=== PATIENT | male | born 2000 | race Caucasian/White ===

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

== ENCOUNTER 2019-04-06 22:00 | Emergency (ER) | payer OTHER, SELFPAY ==
[2019-04-06 22:01] VITALS: BP 119/57; PULSE 86; RESP 18; TEMP 36.6; O2SAT 100; BMI 19.2
--- NOTE | 2019-04-06 22:20 | ED.RN ---
pt had tetanus shot approx 6 months ago
--- NOTE | 2019-04-06 22:25 | ED.DCSUM_ITS ---
- ER Visit Summary Date of Service: 04/06/19 Chief Complaint: Laceration History of Present Illness: The patient is a 18 M with a laceration to his right hand. This happened at work. He hit his hand against a conveyor and pulled it back immediately. He sustained an injury to his dorsal right hand just proximal to the index finger MCP joint. No other associated complaints. Up-to-date with immunizations. Physical Examination: There is a 3 cm curvilinear laceration to the dorsum of the right hand just proximal to the index finger MCP joint. This appears to have been glued. There appears to be good alignment. Skin otherwise is unremarkable and intact. Good strength and sensation. Good range of motion. Test Results: None indicated Emergency Department Course and Treatment: Patient's wound was repaired prior to arrival. I explained that I cannot rule out any kind of deep structure injury, but based on his exam, everything seems to be okay. Risks such as infection were discussed. He will return if he has any new or worsening issues. Wound care instructions were given. Follow-up with [facility]. Treatment Plan: As above Disposition: Discharge Impression: 1. Right hand laceration 3 cm This note was generated with [employer] dictation software. It may contain incorrect words, spelling, and punctuation that were not noted in review of the chart prior to signing ED Disposition - Plan for ED Patient: Referrals: Care Physician,No Primary [Primary Care Provider] -
--- NOTE | 2019-04-06 22:27 | ED.DEP ---
ED Disposition - Plan for ED Patient: Instructions: LACERATION, Hand Referrals: [facility] [GROUP OF PHYSICIANS] -
[2019-04-06 22:33] VITALS: RESP 16
== END 2019-04-06 22:34 | disposition home or self-care (01) ==
LOC: ED 22:20
PROVIDERS: Emergency Provider Emergency Medicine
DX: S61.411A Laceration without foreign body of right hand, initial encounter (principal); W22.8XXA Striking against or struck by other objects, initial encounter; Y93.89 Activity, other specified; Y92.89 Other specified places as the place of occurrence of the external cause; Y99.0 Civilian activity done for income or pay; Z72.0 Tobacco use
CPT/HCPCS: 99282